=== PATIENT | female | born 1960 | race Caucasian/White ===

== ENCOUNTER 2017-11-13 09:48 | Observation (INO) | payer BC ==
[~2017-11-13] VITALS: Ht 175.3 cm; Wt 81.6 kg
--- NOTE | ~2017-11-13 | OP ---
[address] [address] OPERATIVE REPORT Name: JUSTEN DELGADO [id number] Admission: 11/13/17 Attend Phys: Uriel Sam MD Discharge: 11/14/17 Date of : 56 Report #: [id number] THIS REPORT FOR: //name// For details of the operative procedure, please refer to the post operative note. By: [facility] Center[facility] Records Staff JEFFERSON /ZOIE
[~2017-11-13 09:48] MED LIST: CALCIUM 600 +1 EAC1 PO; LIPITOR10 MG PO; SYNTHROID 25 MCG PO; UNICOMPLEX M TA1 TA1 PO; VITAMIN D1000 UNI1 PO; VITAMINC500 PO
[2017-11-13 10:24] LABS: HEMATOCRIT 40.7 % (37.0-47.0); HEMOGLOBIN 13.7 gm/dL (12.0-15.0); MCH 31.4 pg (26.0-34.0); MCHC 33.8 g/dL (28.0-37.0); MPV 8.8 fl. (7.2-11.1); RBC 4.38 mil/uL (4.20-5.00); RDW-CV 12.4 % (10.5-14.5)
[2017-11-13 10:29] VITALS: BP 136/84
[2017-11-13 10:30] LABS: CALCIUM 9.1 mg/dL (8.5-10.1); CREATININE 0.9 mg/dL (0.6-1.3); POTASSIUM 3.9 mmol/L (3.5-5.1)
[2017-11-13 10:34] LABS: ALBUMIN 3.9 g/dL (3.4-5.0); TOTAL BILIRUBIN 0.5 mg/dL (<0.1-1.0); TOTAL PROTEIN 7.5 g/dL (6.4-8.2)
--- NOTE | 2017-11-13 13:22 | H ---
[place] [address] HISTORY AND PHYSICAL Name: UJSTEN DELGADO Room: [facility]#: [id number] Admission: 11/13/17 Attend Phys: Uriel Sam MD Discharge: Date of : 56 Report #: [id number] THIS REPORT FOR: //name// CC: Sherley Sam SUBJECTIVE: The patient is a 57-year-old white female originally referred to me by Dr. Sherley Johnston for evaluation of an adnexal mass. She was being evaluated for month long history of right-sided hip pain and an x-ray on 08/31/2017 showed a normal hip, but suggest a calcified uterine fibroid. Followup ultrasound was then ordered and imaging on 09/07/2017 demonstrated a nonvisualized right ovary with a "complex partially calcified mass occupying the right adnexa. This may be a large ovarian dermoid." Review of those ultrasound images does show that the mass was about 6 cm in diameter. The patient is now asymptomatic. She has no current gynecologic concerns. She is having some difficulty with Achilles tendon pain on the right. She denies any past history of abnormal Pap smears. The patient does have a family history of breast cancer. PAST MEDICAL HISTORY: Positive for hypothyroidism and migraine headaches. SOCIAL HISTORY: The patient is a never smoker and does not consume alcohol. OBJECTIVE: VITAL SIGNS: The patient's blood pressure 150/92, weight is 180 pounds (81.6 kilograms). GENERAL: She is a well-nourished, well-developed white female in no acute distress. HEENT: Head is normocephalic. Mouth and nares are normal. NECK: Normal range of motion with no thyromegaly present. CHEST: Clear to auscultation. HEART: Has normal sinus rhythm without murmurs. ABDOMEN: Soft. Bowel sounds are normal. There is no palpable mass or tenderness. GENITOURINARY: External genitalia appear normal. The vagina is without lesion. Uterus is nontender, freely mobile and appears midplane. There is a palpable right adnexal mass that is nontender. EXTREMITIES: Shows no varicosities or edema. Gait and cerebellar functions are normal. 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 PLAN: Management options of this mass have been discussed in detail with the patient on several occasions and she elects to proceed with laparoscopy with bilateral salpingo-oophorectomy. She is aware that a mini laparotomy or a full laparotomy may be required depending on intraoperative findings. Risks of this operation including bleeding, infection, damage [place] [address] HISTORY AND PHYSICAL Name: JUSTEN DELGADO Room: [facility]#: [id number] Admission: 11/13/17 Attend Phys: Uriel Sam MD Discharge: Date of : 56 Report #: [id number] anesthetic risks have all been discussed with the patient. She has had the opportunity to ask questions and have them answered. <ELECTRONICALLY SIGNED> By: Uriel Sam MD 11/13/17 1322 1040 1101Uriel Sam MD /nt
--- NOTE | 2017-11-13 14:30 | NUR ---
PATIENT ARRIVED TO UNIT AT 1420. ALERT AND ORIENTED X4. IV IS PATENT AND INFUSING. REQUESTING PAIN MEDICATION. DENIES NAUSEA. PATIENT HAS BEEN ORIENTED TO ROOM. VSS ON ROOM AIR. HOURLY ROUNDS HAVE BEEN MAINTAINED THROUGHOUT SHIFT. CALL LIGHT IS WITHIN REACH. NURSING WILL CONTINUE TO MONITOR.
[2017-11-13 15:00] VITALS: BP 109/55
--- NOTE | 2017-11-13 17:21 | NUR ---
ALERT AND ORIENTED X4. UP WITH ASSIST X1 TO THE BEDSIDE COMMODE. IV IS PATENT AND INFUSING. PAIN BEING MANAGED WITH PO AND IV PAIN MEDICATION. DENIES NAUSEA. TOLERATING DIET. VSS ON ROOM AIR. HOURLY ROUNDS HAVE BEEN MAINTAINED THROUGHOUT SHIFT. CALL LIGHT IS WITHIN REACH. NURSING WILL CONTINUE TO MONITOR.
[2017-11-13 20:00] VITALS: BP 112/65
[2017-11-13 23:50] VITALS: BP 104/56
--- NOTE | 2017-11-14 05:41 | NUR ---
PATIENT ALERT AND ORIENTED. VITALS STABLE. RA. UP SBA TO BSC. LAP SITES X 3 C/D/I. PAIN CONTROLLED WITH PO MEDICATION. DENIES NAUSEA. FLUIDS INFUSING PER ORDER. HOURLY ROUNDS. NURSING WILL CONTINUE TO MONITOR.
[2017-11-14] MEDS ORDERED: HYDROCODON-ACE1 EAC7 PO (07:39)
[2017-11-14] MEDS ORDERED: IBUPROFEN 600600 M1 PO (07:39)
[2017-11-14 09:05] VITALS: BP 116/69
[2017-11-14 10:20] VITALS: BP 104/56
[2017-11-14 10:55] VITALS: BP 104/56
--- NOTE | 2017-11-14 12:35 | NUR ---
PT DISCHARGED TO HOME AT THIS TIME. IV REMOVED DURING AM ASSESSMENT. PATIENT AND SPOUSE VERBALIZED UNDERSTANDING OF DISCHARGE INSTRUCTIONS. SCRIPTS GIVEN.
--- NOTE | 2017-11-17 15:23 | S ---
[address] [address] SURGICAL PATH RPT PROCEDURE Name: XOCHITL DELGADO Room: [address] [facility]#: [id number] Admission: 11/13/17 Date of : 56 Discharge: 11/14/17 Report #: [id number] Path Case #: [id number] PATHOLOGY REPORT COLLECTION DATE: 11/13/2017 RECEIVED DATE: 11/14/2017 SUBMITTING PHYS: Dr. Uriel Sam OTHER PHYS: Dr. Sherley Olvera SPECIMEN(S) RECEIVED: A.Left fallopian tube and ovary B.Right fallopioan tube and ovary * * * * * * * * * * * * FINAL DIAGNOSIS: A. Fallopian tube and ovary "left fallopian tube and ovary, salpingo-oophorectomy": - Ovary with a mucinous cyst adenoma. - There is no evidence of borderline changes, atypia or malignancy. - Fallopian tube with no diagnostic changes. B. Fallopian tube and ovary "right fallopian tube and ovary, salpingo-oophorectomy": - Dermoid cyst with calcification and ossification . - No immature elements seen. (SHA:[facility]; 11/15/2017) PATHOLOGIST: Robby Santana M.D. REPORT ELECTRONICALLY SIGNED BY: Robby Santana M.D. DATE/TIME: 11/17/2017 15:22 * * * * * * * * * * * * GROSS PATHOLOGY: A. The specimen is received in formalin labeled "Xochitl Johnston, left fallopian tube and ovary". Received is a 19 g adnexal specimen consisting of a fimbria fallopian tube measuring 5.9 cm in length by 0.5 cm in diameter attached to a 4.2 x 3.7 x 2.5 cm cystic ovary. Sectioning through the fallopian tube reveals a pinpoint lumen, and the fallopian tube appears grossly unremarkable. Sectioning through the ovary reveals a large unilocular cystic structure measuring 3.2 cm filled with clear to light carter mucoid material. The cyst wall linings are smooth in appearance with no gross evidence of papillary excrescences. A slight amount of normal pale-carter ovarian stroma is present. The specimen is submitted representatively in cassettes A1 and A2. ([facility]; 11/14/2017) After initial microscopic examination, the remainder of the ovarian cyst is submitted in cassettes A3 [place] [address] SURGICAL PATH RPT PROCEDURE Name: XOCHITL DELGADO Room: [address] [facility]#: [id number] Admission: 11/13/17 Date of : 56 Discharge: 11/14/17 Report #: [id number] Path Case #: [id number] ([facility]; 11/15/2017) B. The specimen is received in formalin labeled "Xochitl Johnston, right fallopian tube and ovary". Received is a 1 g non-fimbriated fallopian tube measuring 1.5 cm in length by 0.5 cm in diameter and separately submitted 9 g ovary measuring 3.8 x 2.9 x 1.6 cm. Sectioning through the fallopian tube reveals a pinpoint lumen, and the fallopian tube appears grossly unremarkable. Sectioning through the ovary reveals a large unilocular cystic structure measuring 2.4 cm filled with hair. The cyst wall is moderately calcified. The specimen is submitted representatively in cassettes B1 and B2, with cassette B2 submitted following decalcification. ([facility]; 11/14/2017) After initial microscopic examination, the remainder the ovary is submitted in cassettes B3 through B12, following decalcification. ([facility]; 11/05/2017) CLINICAL HISTORY: Adnexal mass INITIAL CPT CODE(S): A; 51390 B; 64987, 22615 Professional services performed [place] [facility] [address] Technical services performed by [facility] at [address] [place] [address], [address], [place] [address]. [facility] [place] [address] PHONE: [phone] DIRECTOR: Ravi Wiseman M.D. * * * END OF REPORT * * *
== END 2017-11-14 10:55 | disposition home or self-care (01) ==
LOC: M.SUR 09:48 → M.TBA 09:48 → M.PRE 09:56 → M.SUR 10:43 → M.ORTHSURG 13:05 → M.TBA 13:05 → M.SUR 14:18 → M.ORTHSURG 11-14 10:55 → M.SUR 11-14 10:55 → M.ORTHSURG 11-14 10:55
PROVIDERS: ADMIT Specialist
DX: N83.202 Unspecified ovarian cyst, left side (principal); N83.201 Unspecified ovarian cyst, right side; R19.09 Other intra-abdominal and pelvic swelling, mass and lump; E03.9 Hypothyroidism, unspecified; G43.909 Migraine, unspecified, not intractable, without status migrainosus; M76.61 Achilles tendinitis, right leg; M25.551 Pain in right hip; Z79.899 Other long term (current) drug therapy